=== PATIENT | male | born 2000 ===

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

== ENCOUNTER 2021-02-14 03:17 | Outpatient (CLI) | payer OTHER, SELFPAY ==
[2021-02-18 14:58] LABS: TB Interpretation Negative (Negative)
== END 2021-02-14 03:18 | disposition home or self-care (01) ==
LOC: LBO 03:18
PROVIDERS: Visit Provider Pediatrics
DX: Z11.1 Encounter for screening for respiratory tuberculosis (principal)
CPT/HCPCS: 36415; 86480